=== PATIENT | female | born 1985 | race Caucasian/White ===

== ENCOUNTER 2018-05-14 13:05 | Emergency (ER) | payer OTHER ==
[~2018-05-14] VITALS: Ht 162.6 cm; Wt 126.2 kg
[2018-05-14 13:08] VITALS: TEMP 36.9; Ht 162.6 cm; Wt 126.2 kg
--- NOTE | 2018-05-14 13:43 | EMERGENCY ROOM VISIT NOTE ---
History Report prepared by Adeline: Rylee Quiroz Under the Supervision of: Dr. Desirae Chen M.D. First contact with patient: 13:13 Chief Complaint: ED VAG BLEEDING Stated Complaint: REF BY DANNA MUÑOZ, LOW HEMOGLOBIN History of Present Illness The patient is a 32 year old female who presents to the Emergency Room with complaints of constant vaginal bleeding starting 5 months ago. The patient states that she had brain surgery 5 months ago to correct a Chiari malformation at [facility]. She states that she woke up from the surgery with her period and has had it since. She states that over the past two months she has had increased bleeding. She reports that it is so much so that a whole cup of blood is dumped from her when she stands up or bends over. The patient states that she went to her PCP today and was sent to the ED after a pelvic exam and checking her hemoglobin. She states that she originally went to [place], but they had an ED wait of 8-12 hours. She reports that she called her PCP and they instructed her to come to [facility] [address]. The patient complains of constant abdominal cramping that sometimes goes into her back. She states that sometimes it feels like labor contractions. The patient denies seeing her [facility] recently, taking Aspirin, taking Ibuprofen, and the chance of . The patient notes that she was taking control until she started getting headaches and it affected her blood pressure. She states that she then started getting the Depo shot and that made her spot in between periods. She reports that last spring she had a D&C done. She notes that she has not had a Depo shot in 3 years. Source of History: patient Onset: 5 months ago Position: other (vagina) Quality: other (bleeding) Timing: constant Modifying Factors (Worsening): other (standing up, bending over) Associated Symptoms: + abdominal pain Review of Systems See HPI for pertinent positives & negatives. A total of 10 systems reviewed and were otherwise negative. Past Medical & Surgical Medical Problems: (1) History of Chiari malformation (2) Stomach ulcer Surgical Problems: (1) H/O laminectomy (2) Hx of dilation and curettage Family History No pertinent family history Social History Smoking Status: Never Smoker Marital Status: Housing Status: lives with family Current/Historical Medications Scheduled Ferrous Sulfate (Ferrous Sulfate), 1 TAB PO DAILY Norethindrone (Aygestin), 5 MG PO DIRECTED Allergies Coded Allergies: NSAIDs (Unverified Allergy, Unknown, STOMACH ULCER, 05/14/18) Physical Exam Vital Signs Date Time Temp Pulse Resp B/P (MAP) Pulse Ox O2 Delivery O2 Flow Rate FiO2 05/14/18 16:28 85 17 137/87 100 05/14/18 15:08 82 16 127/90 100 Room Air 05/14/18 14:14 92 05/14/18 14:11 86 144/76 103 163/78 95 175/92 05/14/18 13:55 81 17 168/95 100 Room Air 05/14/18 13:08 36.9 91 16 145/85 100 Room Air Physical Exam Vital signs reviewed. General: Well-appearing, morbidly obese, in no significant distress. HEENT: No scleral icterus, PERRLA, neck supple. Atraumatic. Cardiovascular: Regular rate and rhythm, no extra sounds. Pulmonary: Clear to auscultation bilaterally, normal work of breathing. Abdomen: Soft, mild tenderness to suprapubic region, nondistended, positive bowel sounds. No rebound. No guarding. Musculoskeletal: Atraumatic, no peripheral edema. No CVA tenderness. Neurologic: Patient awake alert and oriented x 3 Skin: Warm, dry, no rash Medical Decision & Procedures ER Provider Diagnostic Interpretation: Radiology results as stated below per my review and radiologist interpretation: ULTRASOUND OF THE PELVIS CLINICAL HISTORY: Vaginal bleeding. COMPARISON STUDY: No priors. TECHNIQUE: Real-time, grayscale, and color flow sonography of the pelvis is performed both transabdominally and endovaginally. Images are reviewed in the transverse and longitudinal planes. FINDINGS: Uterus: The uterus is normal in size and echotexture, measuring 9.0 x 6.2 x 6.6 cm. Nabothian cysts are noted in the cervix. Endometrium: The endometrium appears thickened heterogeneous, measuring up to 1.6 cm. Increased flow is shown within the endometrium on color imaging. Complex fluid is noted within the endometrial canal. Ovaries: The ovaries are normal in size and morphology. The right ovary measures 3.5 x 1.8 x 3.2 cm and the left ovary measures 3.1 x 2.0 x 1.8 cm. Small follicles are noted bilaterally. Normal Doppler waveforms are shown within both ovaries. The left ovary was only seen on the transabdominal imaging. Pelvis: There is no free fluid in the cul-de-sac. No concerning adnexal lesion is seen. IMPRESSION: 1. The endometrium appears thickened and heterogeneous, and demonstrates increased vascularity on color imaging. Complex fluid within the endometrial canal likely represents blood products. These findings are nonspecific. Follow-up with gynecology is recommended. 2. The ovaries are normal as visualized. No adnexal abnormality is seen. Electronically signed by: Hunter Lewis M.D. 05/14/2018 3:35 PM Dictated Date/Time: 05/14/2018 3:30 PM Laboratory Results 05/14/18 13:37 Red Blood Count 3.72, Mean Corpuscular Volume 75.5, Mean Corpuscular Hemoglobin 23.7, Mean Corpuscular Hemoglobin Concent 31.3, Mean Platelet Volume 10.5, Neutrophils (%) (Auto) 71.8, Lymphocytes (%) (Auto) 20.5, Monocytes (%) (Auto) 6.3, Eosinophils (%) (Auto) 0.9, Basophils (%) (Auto) 0.2, Neutrophils # (Auto) 7.39, Lymphocytes # (Auto) 2.11, Monocytes # (Auto) 0.65, Eosinophils # (Auto) 0.09, Basophils # (Auto) 0.02 05/14/18 13:37 Test 05/14/18 13:37 White Blood Count 10.29 K/uL (4.8-10.8) Red Blood Count 3.72 M/uL (4.2-5.4) Hemoglobin 8.8 g/dL (12.0-16.0) Hematocrit 28.1 % (37-47) Mean Corpuscular Volume 75.5 fL (80-100) Mean Corpuscular Hemoglobin 23.7 pg (25-34) Mean Corpuscular Hemoglobin Concent 31.3 g/dl (32-36) Platelet Count 260 K/uL (130-400) Mean Platelet Volume 10.5 fL (7.4-10.4) Neutrophils (%) (Auto) 71.8 % Lymphocytes (%) (Auto) 20.5 % Monocytes (%) (Auto) 6.3 % Eosinophils (%) (Auto) 0.9 % Basophils (%) (Auto) 0.2 % Neutrophils # (Auto) 7.39 K/uL (1.4-6.5) Lymphocytes # (Auto) 2.11 K/uL (1.2-3.4) Monocytes # (Auto) 0.65 K/uL (0.11-0.59) Eosinophils # (Auto) 0.09 K/uL (0-0.5) Basophils # (Auto) 0.02 K/uL (0-0.2) RDW Standard Deviation 40.6 fL (36.4-46.3) RDW Coefficient of Variation 14.7 % (11.5-14.5) Immature Granulocyte % (Auto) 0.3 % Immature Granulocyte # (Auto) 0.03 K/uL (0.00-0.02) Red Blood Cell Morphology Unremarkable Anion Gap 7.0 mmol/L (3-11) Est Creatinine Clear Calc Drug Dose 134.9 ml/min Estimated GFR () 115.8 Estimated GFR (Non- 99.9 BUN/Creatinine Ratio 12.3 (10-20) Calcium Level 8.8 mg/dl (8.5-10.1) Total Bilirubin 0.6 mg/dl (0.2-1) Direct Bilirubin 0.2 mg/dl (0-0.2) Aspartate Amino Transf (AST/SGOT) 10 U/L (15-37) Alanine Aminotransferase (ALT/SGPT) 17 U/L (12-78) Alkaline Phosphatase 62 U/L (45-117) Total Protein 7.5 gm/dl (6.4-8.2) Albumin 3.4 gm/dl (3.4-5.0) Human Chorionic Gonadotropin, Qual NEG (NEG) Laboratory results per my review. ECG Per My Interpretation Indication: abdominal pain Rate (beats per minute): 82 Rhythm: normal sinus Findings: no acute ischemic change, no ectopy, other (possible previous anterior infarct) ED Course 1315: Past medical records reviewed. The patient was evaluated in room B6. A complete history and physical examination was performed. 1423: I discussed the patient's case with Dr. [id number]. She recommends Addressin for 10 days and call the office to schedule a follow up appointment. 1517: I reevaluated the patient and updated her on her test results thus far. 1607: Upon reevaluation, the patient appeared to have improvement of her symptoms. I discussed findings with her. She verbalized agreement of the treatment plan. The patient was discharged home. Medical Decision Differential diagnosis: Etiologies such as ectopic , dysfunction uterine bleeding, bleeding dyscrasia, trauma, infection, as well as others were entertained. This pt was evaluated and appeared to be in no distress. IV access was obtained and lab work was drawn. Patient's hemoglobin is noted to be 8.8. Vital signs are stable. Patient had a pelvic exam prior to arrival. Ultrasound the pelvis was performed and is as above. As the patient is clinically stable however anemic, I do not think blood transfusion is indicated at this time. I did speak with Dr. Rodrigez of [facility] who has recommended an Aygestin taper. Patient was given a prescription in case management was involved. They were able to schedule the patient an appointment with the [facility] office May 24 at 10 AM. Patient was given a prescription for the Aygestin taper with directions. She will return to the ED for worsening of symptoms or any medical concerns. Medication Reconcilliation Current Medication List: was personally reviewed by me Blood Pressure Screening Patient's blood pressure: Elevated blood pressure Blood pressure disposition: Elevated BP felt to be situational Consults Time Called: 1412 Consulting Physician: Dr. [id number] Returned Call: [phone] I discussed the patient's case with Dr. [id number]. She recommends Addressin for 10 days and call the office to schedule a follow up appointment. Impression Primary Impression: Dysfunctional uterine bleeding Additional Impression: Anemia Scribe Attestation The scribe's documentation has been prepared under my direction and personally reviewed by me in its entirety. I confirm that the note above accurately reflects all work, treatment, procedures, and medical decision making performed by me. Departure Information Dispostion Home / Self-Care Prescriptions Norethindrone (Aygestin) 5 Mg Tab 5 MG PO DIRECTED, #22 TAB 10 mg twice daily x 3 d, then 5 mg twice daily x 3d, 2 mg twice daily x 3 d, then 2.5 mg qd for 2 days Prov: Desirae Chen M.D. 05/14/18 Ferrous Sulfate (Ferrous Sulfate) 325 Mg Tab 1 TAB PO DAILY for 30 Days, #30 TABS 4 Refills Prov: Desirae Chen M.D. 05/14/18 Referrals No Doctor, Assigned (PCP) Forms HOME CARE DOCUMENTATION FORM, IMPORTANT VISIT INFORMATION, WORK / SCHOOL INSTRUCTIONS Patient Instructions My [facility] Additional Instructions Diagnosis: Dysfunctional Uterine bleeding Aygestion 10 mg twice daily for 3 days, 5 mg twice daily for 3 days, 2.5 mg twice daily for 3 days, then 2.5 mg once daily for 2 days. You should expect to have bleeding when the medication is complete. Please drink plenty of clear fluids. Follow-up with Dr. Coe on May 24 at 10 AM. Please see contact information below. Begin iron supplementation. Return to the emergency department for worsening of symptoms or any medical concerns. Problem Qualifiers
[2018-05-14 14:02] LABS: BASO % 0.2 %; BASO ABS # 0.02 K/uL (0-0.2); EOS % 0.9 %; EOS ABS # 0.09 K/uL (0-0.5); HEMATOCRIT 28.1 % (37-47); HEMOGLOBIN 8.8 g/dL (12.0-16.0); IG# 0.03 K/uL (0.00-0.02); LYMPH % 20.5 %; LYMPH ABS # 2.11 K/uL (1.2-3.4); MEAN CELL VOLUME 75.5 fL (80-100); MEAN CORPUSCULAR HEMOGLOBIN 23.7 pg (25-34); MEAN CORPUSCULAR HGB CONC 31.3 g/dl (32-36); MEAN PLATELET VOLUME 10.5 fL (7.4-10.4); MONO % 6.3 %; MONO ABS # 0.65 K/uL (0.11-0.59); NEUT % 71.8 %; NEUT ABS # 7.39 K/uL (1.4-6.5); PLATELET COUNT 260 K/uL (130-400); RED CELL DISTRIBUTION WIDTH CV 14.7 % (11.5-14.5); RED CELL DISTRIBUTION WIDTH SD 40.6 fL (36.4-46.3); WHITE BLOOD COUNT 10.29 K/uL (4.8-10.8)
[2018-05-14 14:23] LABS: ALBUMIN 3.4 gm/dl (3.4-5.0); CALCIUM 8.8 mg/dl (8.5-10.1); CREATININE 0.78 mg/dl (0.60-1.20); POTASSIUM 3.9 mmol/L (3.5-5.1); TOTAL PROTEIN 7.5 gm/dl (6.4-8.2)
--- NOTE | 2018-05-14 15:37 | DIAGNOSTIC IMAGING REPORT ---
ULTRASOUND OF THE PELVIS CLINICAL HISTORY: Vaginal bleeding. COMPARISON STUDY: No priors. TECHNIQUE: Real-time, grayscale, and color flow sonography of the pelvis is performed both transabdominally and endovaginally. Images are reviewed in the transverse and longitudinal planes. FINDINGS: Uterus: The uterus is normal in size and echotexture, measuring 9.0 x 6.2 x 6.6 cm. Nabothian cysts are noted in the cervix. Endometrium: The endometrium appears thickened heterogeneous, measuring up to 1.6 cm. Increased flow is shown within the endometrium on color imaging. Complex fluid is noted within the endometrial canal. Ovaries: The ovaries are normal in size and morphology. The right ovary measures 3.5 x 1.8 x 3.2 cm and the left ovary measures 3.1 x 2.0 x 1.8 cm. Small follicles are noted bilaterally. Normal Doppler waveforms are shown within both ovaries. The left ovary was only seen on the transabdominal imaging. Pelvis: There is no free fluid in the cul-de-sac. No concerning adnexal lesion is seen. IMPRESSION: 1. The endometrium appears thickened and heterogeneous, and demonstrates increased vascularity on color imaging. Complex fluid within the endometrial canal likely represents blood products. These findings are nonspecific. Follow-up with gynecology is recommended. 2. The ovaries are normal as visualized. No adnexal abnormality is seen. Electronically signed by: Hunter Lewis M.D. 05/14/2018 3:35 PM Dictated Date/Time: 05/14/2018 3:30 PM
[2018-05-14] MEDS ORDERED: FRRS300 PO (15:55)
[2018-05-14] MEDS ORDERED: NORE5TAB5 PO ×3 (15:56→16:28)
[2018-05-14 16:28] VITALS: BP 137/87; PULSE 85; O2SAT 100
== END 2018-05-14 16:35 | disposition home or self-care (01) ==
LOC: C.EDB 13:07
DX: N93.8 Other specified abnormal uterine and vaginal bleeding (principal); D64.9 Anemia, unspecified; Z98.890 Other specified postprocedural states; Z79.899 Other long term (current) drug therapy; E66.01 Morbid (severe) obesity due to excess calories